=== PATIENT | male | born 1995 | race Caucasian/White ===

== ENCOUNTER 2017-08-17 17:57 | Emergency (ER) | payer OTHER ==
[~2017-08-17] VITALS: Ht 185.4 cm; Wt 148.0 kg
[2017-08-17 18:11] VITALS: BP 159/83; TEMP 37.2; Ht 185.4 cm; Wt 148.0 kg
--- NOTE | 2017-08-17 19:11 | DIAGNOSTIC IMAGING REPORT ---
R FOOT MIN 3 VIEWS ROUTINE CLINICAL HISTORY: R ankle/foot pain pain COMPARISON: None. DISCUSSION: The bones and joint spaces appear intact. There is no evidence of fracture, dislocation or bony disease. There is no evidence for soft tissue swelling. IMPRESSION: Negative study. The above report was generated using voice recognition software. It may contain grammatical, syntax or spelling errors. Electronically signed by: Erick Sarabia M.D. 08/17/2017 7:09 PM Dictated Date/Time: 08/17/2017 7:09 PM
--- NOTE | 2017-08-17 19:12 | DIAGNOSTIC IMAGING REPORT ---
R ANKLE MIN 3 VIEWS ROUTINE CLINICAL HISTORY: R ankle/foot pain pain COMPARISON: 01/16/2016 DISCUSSION: The bones and joint spaces appear intact. There is no evidence of fracture, dislocation or bony disease. There is no evidence for soft tissue swelling. IMPRESSION: Negative study. The above report was generated using voice recognition software. It may contain grammatical, syntax or spelling errors. Electronically signed by: Erick Sarabia M.D. 08/17/2017 7:11 PM Dictated Date/Time: 08/17/2017 7:10 PM
[2017-08-17 19:55] VITALS: PULSE 92; O2SAT 98
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
== END 2017-08-17 19:56 | disposition home or self-care (01) ==
LOC: C.EDB 17:59 → C.EDD 19:56
DX: S93.402A Sprain of unspecified ligament of left ankle, initial encounter (principal); X58.XXXA Exposure to other specified factors, initial encounter; Y99.0 Civilian activity done for income or pay; Z86.14 Personal history of Methicillin resistant Staphylococcus aureus infection; Z80.9 Family history of malignant neoplasm, unspecified